=== PATIENT | female | born 1960 | race American Indian/Alaskan Native ===

== ENCOUNTER 2016-10-15 21:31 | Inpatient (IN) | payer MEDICARE, OTHER ==
[2016-10-15] MEDS ORDERED: NACL 0.9% 1000 ML 1,000 ML IV ONE (22:50)
[2016-10-15 22:57] LABS: Bilirubin,Urine NEG (Negative); Blood,Urine MOD (Negative); Ketones,Urine NEG (Negative); Leukocyte Esterase,Urine MOD (Negative); Nitrite,Urine NEG (Negative); Urobilinogen,Urine < 2.0 mg/dL (<2.0)
[2016-10-15 22:58] LABS: Bacteria,Urine 3+ /HPF (Negative); WBC,Urine > 182.0 /HPF (0.0-6.0)
[2016-10-15] MEDS ORDERED: ROCEPHIN/NS 1 GM/50 ML 1 GM/50 ML BAG IV ONE (23:04)
[2016-10-15 23:15] LABS: Eosinophils % (Auto) 4.6 % (0.0-4.3); Hematocrit 35.7 % (30.3-42.9); Hemoglobin 11.7 gm/dl (10.1-14.3); Mean Corpuscular HGB Conc 33 % (30-34); Mean Corpuscular Hemoglobin 27 pg (28-32); Mean Corpuscular Volume 84 fl (79-97); Platelet Count 401 K/mm3 (140-440); Red Blood Count 4.26 M/mm3 (3.65-5.03); Red Cell Distribution Width 14.7 % (13.2-15.2); White Blood Count 8.3 K/mm3 (4.5-11.0)
[2016-10-15 23:32] LABS: Creatine Kinase MB 1.2 ng/mL (0.0-4.0)
[2016-10-15 23:35] LABS: Albumin 3.3 g/dL (3.9-5); Albumin/Globulin Ratio 0.6 %; BUN/Creatinine Ratio 12.75; Bilirubin,Total 0.4 mg/dL (0.1-1.2); Calcium 10.5 mg/dL (8.4-10.2); Chloride 97.6 mmol/L (98-107); Potassium 4.6 mmol/L (3.6-5.0); Total Protein 8.4 g/dL (6.3-8.2)
[2016-10-15 23:40] LABS: INR 1.13 (0.87-1.13)
--- NOTE | 2016-10-15 23:56 | Emergency Department Report ---
ED Syncope HPI - General Chief Complaint: Abdominal Pain Stated Complaint: PAINFUL URINATION/VAG DISCHARGE Time Seen by Provider: 10/15/16 22:32 Source: old records (neg stress test 04/25) Exam Limitations: no limitations - History of Present Illness Initial Comments: 55 yo female with a past medical history of CVA with residual right-sided deficits, diabetes, hypertension, lupus, and chronic renal sufficiency presents to the hospitalist syncopal episode. Patient had a syncopal episode in the room. Patient complains of left-sided chest pain described as throbbing. No pain at this time. No associated shortness of breath. Patient has had decreased by mouth intake/appetite times one week. No present fever, nausea, vomiting, or diarrhea. - Related Data Allergies/Adverse Reactions: Allergies codeine Allergy (Verified 10/24/15 12:18) Vomiting Home Medications: Ambulatory Orders Carvedilol [Coreg] 6.25 mg PO BID #60 tablet 07/28/15 Clopidogrel Bisulfate [Plavix] 75 mg PO DAILY #30 tablet 07/28/15 Gabapentin [Neurontin] 200 mg PO QHS #60 capsule 07/28/15 Insulin NPH/Regular [NovoLIN 70/30] 15 unit SUB-Q BIDDIAB #3 units 07/28/15 Simvastatin [Zocor TAB] 10 mg PO QHS #30 tablet 07/28/15 cloNIDine [Catapres] 0.1 mg PO TID #90 tablet 07/28/15 ED Review of Systems ROS: Stated complaint: PAINFUL URINATION/VAG DISCHARGE Other details as noted in HPI Comment: All other systems reviewed and negative Other: Constitutional: No fevers chills or weight loss Eyes: No eye pain visual changes or discharge ENT: No ear pain or throat pain Neck: Denies pain Respiratory: Denies cough wheezing shortness of breath Cardiovascular: as per hpi GI: Denies abdominal pain, nausea, vomiting, diarrhea : Denies dysuria Musculoskeletal: Denies back pain Skin: Denies rash, lesions, erythema Neurologic: Denies headache, numbness Psychiatric: Denies suicidal ideation, hallucinations ED Past Medical Hx - Past Medical History Previous Medical History?: Yes Hx Hypertension: Yes Hx CVA: Yes (06/10/15 Right side weakness) Hx Congestive Heart Failure: No Hx Diabetes: Yes Hx Renal Disease: Yes Hx Headaches / Migraines: Yes Hx Kidney Stones: Yes Hx Asthma: No Hx COPD: No Hx HIV: No Additional medical history: Lupus - Surgical History Past Surgical History?: No Additional Surgical History: stent in both kidneys and removed, tubal - Social History Smoking Status: Never Smoker Substance Use Type: None - Medications Home Medications: Home Medications Medication Instructions Recorded Confirmed Last Taken Type Carvedilol [Coreg] 6.25 mg PO BID #60 tablet 07/28/15 04/20/16 Unknown Rx Clopidogrel Bisulfate [Plavix] 75 mg PO DAILY #30 tablet 07/28/15 04/20/16 Unknown Rx Gabapentin [Neurontin] 200 mg PO QHS #60 capsule 07/28/15 04/20/16 Unknown Rx Insulin NPH/Regular [NovoLIN 70/30] 15 unit SUB-Q BIDDIAB #3 units 07/28/1506/25 Unknown Rx Simvastatin [Zocor TAB] 10 mg PO QHS #30 tablet 07/28/15 04/20/16 Unknown Rx cloNIDine [Catapres] 0.1 mg PO TID #90 tablet 07/28/15 04/20/16 Unknown Rx ED Physical Exam - General Limitations: Physical Limitation - Other Other exam information: General: No limitations, patient is alert in no acute distress Head exam: Atraumatic, normocephalic Eyes exam: Normal appearance, pupils equal reactive to light, extraocular movements intact ENT: Moist mucous membrane, normal oropharynx Neck exam: Normal inspection, full range of motion Respiratory exam: Clear to auscultation bilateral, no wheezes, rales, crackles Cardiovascular: Normal rate and rhythm, normal heart sounds Abdomen: Soft, nondistended, and nontender, with normal bowel sounds, no rebound, or guarding Extremity: Full range of motion normal inspection no deformity Back: Normal Inspection, full range of motion, no tenderness Neurologic: Alert, oriented x3, mild dysarthria (chronic), 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 vq and chest xray ordered. hospitalist to follow. - Consultations Consultation #1: 10/16/16 00:28 case d/w Dr Nael Saldivar and EKG reviewed. Will consult ED Medical Decision Making - Lab Data Result diagrams: 10/15/16 22:57 10/15/16 22:57 Lab Results 10/15/16 10/15/16 10/15/16 Range/Units 22:17 22:57 22:57 WBC 8.3 (4.5-11.0) K/mm3 RBC 4.26 (3.65-5.03) M/mm3 Hgb 11.7 (10.1-14.3) gm/dl Hct 35.7 (30.3-42.9) % MCV 84 (79-97) fl MCH 27 L (28-32) pg MCHC 33 (30-34) % RDW 14.7 (13.2-15.2) % Plt Count 401 (140-440) K/mm3 Lymph % (Auto) 35.3 H (13.4-35.0) % [place] % (Auto) 7.9 H (0.0-7.3) % Eos % (Auto) 4.6 H (0.0-4.3) % Baso % (Auto) 1.0 (0.0-1.8) % Lymph # 2.9 (1.2-5.4) K/mm3 [place] # 0.7 (0.0-0.8) K/mm3 Eos # 0.4 (0.0-0.4) K/mm3 Baso # 0.1 (0.0-0.1) K/mm3 Seg Neutrophils % 51.2 (40.0-70.0) % Seg Neutrophils # 4.2 (1.8-7.7) K/mm3 PT (12.2-14.9) Sec. INR (0.87-1.13) Sodium 130 L (137-145) mmol/L Potassium 4.6 (3.6-5.0) mmol/L Chloride 97.6 L (98-107) mmol/L Carbon Dioxide 18 L (22-30) mmol/L Anion Gap 19 mmol/L BUN 51 H (7-17) mg/dL Creatinine 4.0 H (0.7-1.2) mg/dL Estimated GFR 14 ml/min BUN/Creatinine Ratio 12.75 % Glucose 260 H (65-100) mg/dL Calcium 10.5 H (8.4-10.2) mg/dL Total Bilirubin 0.4 (0.1-1.2) mg/dL AST 10 (5-40) units/L ALT 8 (7-56) units/L Alkaline Phosphatase 146 H (35-129) units/L Total Creatine Kinase 49 (30-135) units/L CK-MB (CK-2) 1.2 (0.0-4.0) ng/mL CK-MB (CK-2) Rel Index 2.4 (0-4) Troponin T 0.038 H (0.00-0.029) ng/mL Total Protein 8.4 H (6.3-8.2) g/dL Albumin 3.3 L (3.9-5) g/dL Albumin/Globulin Ratio 0.6 % Triglycerides 208 H (2-149) mg/dL Cholesterol 255 H (50-199) mg/dL LDL Cholesterol Direct 183 H (50-130) mg/dL HDL Cholesterol 31 L (40-59) mg/dL Cholesterol/HDL Ratio 8.22 % Urine Color Yellow (Yellow) Urine Turbidity Turbid (Clear) Urine pH 5.0 (5.0-7.0) Ur Specific [place] 1.012 (1.003-1.030) Urine Protein 100 mg/dl (Negative) mg/dL Urine Glucose (UA) 150 (Negative) mg/dL Urine Ketones Neg (Negative) mg/dL Urine Blood Mod (Negative) Urine Nitrite Neg (Negative) Urine Bilirubin Neg (Negative) Urine Urobilinogen < 2.0 (<2.0) mg/dL Ur Leukocyte Esterase Mod (Negative) Urine WBC (Auto) > 182.0 H (0.0-6.0) /HPF Urine RBC (Auto) 75.0 (0.0-6.0) /HPF Urine Bacteria (Auto) 3+ (Negative) /HPF Urine WBC Clumps 3+ /HPF 10/15/16 Range/Units 23:07 WBC (4.5-11.0) K/mm3 RBC (3.65-5.03) M/mm3 Hgb (10.1-14.3) gm/dl Hct (30.3-42.9) % MCV (79-97) fl MCH (28-32) pg MCHC (30-34) % RDW (13.2-15.2) % Plt Count (140-440) K/mm3 Lymph % (Auto) (13.4-35.0) % [place] % (Auto) (0.0-7.3) % Eos % (Auto) (0.0-4.3) % Baso % (Auto) (0.0-1.8) % Lymph # (1.2-5.4) K/mm3 [place] # (0.0-0.8) K/mm3 Eos # (0.0-0.4) K/mm3 Baso # (0.0-0.1) K/mm3 Seg Neutrophils % (40.0-70.0) % Seg Neutrophils # (1.8-7.7) K/mm3 PT 14.4 (12.2-14.9) Sec. INR 1.13 (0.87-1.13) Sodium (137-145) mmol/L Potassium (3.6-5.0) mmol/L Chloride (98-107) mmol/L Carbon Dioxide (22-30) mmol/L Anion Gap mmol/L BUN (7-17) mg/dL Creatinine (0.7-1.2) mg/dL Estimated GFR ml/min BUN/Creatinine Ratio % Glucose (65-100) mg/dL Calcium (8.4-10.2) mg/dL Total Bilirubin (0.1-1.2) mg/dL AST (5-40) units/L ALT (7-56) units/L Alkaline Phosphatase (35-129) units/L Total Creatine Kinase (30-135) units/L CK-MB (CK-2) (0.0-4.0) ng/mL CK-MB (CK-2) Rel Index (0-4) Troponin T (0.00-0.029) ng/mL Total Protein (6.3-8.2) g/dL Albumin (3.9-5) g/dL Albumin/Globulin Ratio % Triglycerides (2-149) mg/dL Cholesterol (50-199) mg/dL LDL Cholesterol Direct (50-130) mg/dL HDL Cholesterol (40-59) mg/dL Cholesterol/HDL Ratio % Urine Color (Yellow) Urine Turbidity (Clear) Urine pH (5.0-7.0) Ur Specific [place] (1.003-1.030) Urine Protein (Negative) mg/dL Urine Glucose (UA) (Negative) mg/dL Urine Ketones (Negative) mg/dL Urine Blood (Negative) Urine Nitrite (Negative) Urine Bilirubin (Negative) Urine Urobilinogen (<2.0) mg/dL Ur Leukocyte Esterase (Negative) Urine WBC (Auto) (0.0-6.0) /HPF Urine RBC (Auto) (0.0-6.0) /HPF Urine Bacteria (Auto) (Negative) /HPF Urine WBC Clumps /HPF - EKG Data -: EKG Interpreted by Me (sinus rate 58, ant lat ischemia) - EKG Data When compared to previous EKG there are: changes noted (compraed to 01/24/13) - Radiology Data Radiology results: image reviewed (cxr: naf) - Medical Decision Making I suspect the patient had syncope secondary to dehydration. Patient has a mildly elevated troponin was likely due to underlying chronic renal sufficiency does acutely worsened due to dehydration and poor by mouth intake. Symptoms likely secondary to UTI. ddimer added per admitting doctor request. Hospitalist/ Dr Saldivar to follow Rocephin and normal saline initiated VQ pending - Differential Diagnosis unstable angina, pe, dehydration, uti, Critical Care Time: No Critical care attestation.: If time is entered above; I have spent that time in minutes in the direct care of this critically ill patient, excluding procedure time. ED Disposition Clinical Impression: Syncope, UTI (urinary tract infection), Hyperglycemia due to type 1 diabetes mellitus, Acute on chronic renal insufficiency, Abnormal ECG, Dehydration Disposition: OP ADMITTED IP TO THIS HOSP Is pt being admited?: Yes Condition: Stable Time of Disposition: 00:28 (Dr Saldivar/hosp)
[2016-10-16] MEDS ORDERED: TORADOL IV ONE (00:13)
--- NOTE | 2016-10-16 00:41 | History and Physical Report ---
History of Present Illness Date of examination: 10/16/16 History of present illness: 55-year-old woman with history of hypertension, diabetes, chronic kidney disease and hyperlipidemia, lupus, history of CVA came to the emergency room because she had a syncopal episode at home lasting for 2-3 seconds. Patient states she also had chest pain, left anterior chest, dull, unclear how long it lasts for, intensity September 19, no radiation, she cannot identify exacerbating or relieving factors. She denies nausea vomiting, shortness breath , diaphoresis or palpitation Patient denies any or cough. No abdominal pain, no hematochezia. No dysuria or frequency or rash or pruritus or anxiety or depression or seizure or focal weakness. No hot or cold intolerance or polydipsia polyuria, no easy bruisability or bleeding from mucosal membranes. No fever no chills, no earache or tinnitus. Other review of system is negative. PAST SURGICAL HISTORY: None SOCIAL HISTORY:Denies alcohol, tobacco or drugs FAMILY HISTORY:Hypertension, diabetes, CAD Medications and Allergies Allergies Allergy/AdvReac Type Severity Reaction Status Date / Time codeine Allergy Vomiting Verified 10/24/15 12:18 Home Medications Medication Instructions Recorded Confirmed Last Taken Type Carvedilol [Coreg] 6.25 mg PO BID #60 tablet 07/28/15 10/16/16 1 Day Ago Rx Clopidogrel Bisulfate [Plavix] 75 mg PO DAILY #30 tablet 07/28/15 10/16/16 1 Day Ago Rx Gabapentin [Neurontin] 200 mg PO QHS #60 capsule 07/28/15 10/16/16 1 Day Ago Rx Insulin NPH/Regular [NovoLIN 70/30] 15 unit SUB-Q BIDDIAB #3 units 07/28/1504/26 1 Day Ago Rx Simvastatin [Zocor TAB] 10 mg PO QHS #30 tablet 07/28/15 10/16/16 1 Day Ago Rx cloNIDine [Catapres] 0.1 mg PO TID #90 tablet 07/28/15 10/16/16 1 Day Ago Rx Levofloxacin [Levaquin TAB] 500 mg PO Q48H #4 tablet 10/17/16 Unknown Rx Active Meds: Active Medications Sodium Chloride (Nacl 0.9% 1000 Ml) 1,000 mls @ 250 mls/hr IV ONCE ONE Stop: 10/16/16 02:49 Last Admin: 10/15/16 23:53 Dose: 250 mls/hr Exam - Physical Exam Narrative exam: Gen. appearance: Patient lying in bed, no apparent distress HEENT: Normocephalic, atraumatic, pupils equally round and reactive to light, extraocular movement intact, and no sclericterus,. No JVD or thyromegaly or nodule,neck supple, no carotid bruit ,mucous membranes moist, no exudate or erythema Heart: S1, S2, regular rate and rhythm Lungs: Clear to auscultation bilaterally, breathing comfortable Abdomen: Positive bowel sounds, nontender, nondistended, no organomegaly Extremity: No edema, cyanosis, clubbing Skin: No rash, nodules, warm, dry Neuro: Oriented 3, cranial nerves II-12 intact, speech is fluent, right side weakness - Constitutional Vitals: Temp Pulse Resp BP Pulse Ox 98 F 75 18 133/85 100 10/15/16 23:43 10/15/16 23:43 10/15/16 23:43 10/15/16 23:43 10/15/16 23:43 Results - Labs CBC & Chem 7: 10/17/16 04:15 10/17/16 04:15 Labs: Abnormal lab results 10/15/16 10/15/16 10/15/16 Range/Units 22:17 22:57 22:57 MCH 27 L (28-32) pg Lymph % (Auto) 35.3 H (13.4-35.0) % [place] % (Auto) 7.9 H (0.0-7.3) % Eos % (Auto) 4.6 H (0.0-4.3) % D-Dimer (0-234) ng/mlDDU Sodium 130 L (137-145) mmol/L Chloride 97.6 L (98-107) mmol/L Carbon Dioxide 18 L (22-30) mmol/L BUN 51 H (7-17) mg/dL Creatinine 4.0 H (0.7-1.2) mg/dL Glucose 260 H (65-100) mg/dL Calcium 10.5 H (8.4-10.2) mg/dL Alkaline Phosphatase 146 H (35-129) units/L Troponin T 0.038 H (0.00-0.029) ng/mL Total Protein 8.4 H (6.3-8.2) g/dL Albumin 3.3 L (3.9-5) g/dL Triglycerides 208 H (2-149) mg/dL Cholesterol 255 H (50-199) mg/dL LDL Cholesterol Direct 183 H (50-130) mg/dL HDL Cholesterol 31 L (40-59) mg/dL Urine WBC (Auto) > 182.0 H (0.0-6.0) /HPF 10/15/16 Range/Units 23:07 MCH (28-32) pg Lymph % (Auto) (13.4-35.0) % [place] % (Auto) (0.0-7.3) % Eos % (Auto) (0.0-4.3) % D-Dimer 650.55 H (0-234) ng/mlDDU Sodium (137-145) mmol/L Chloride (98-107) mmol/L Carbon Dioxide (22-30) mmol/L BUN (7-17) mg/dL Creatinine (0.7-1.2) mg/dL Glucose (65-100) mg/dL Calcium (8.4-10.2) mg/dL Alkaline Phosphatase (35-129) units/L Troponin T (0.00-0.029) ng/mL Total Protein (6.3-8.2) g/dL Albumin (3.9-5) g/dL Triglycerides (2-149) mg/dL Cholesterol (50-199) mg/dL LDL Cholesterol Direct (50-130) mg/dL HDL Cholesterol (40-59) mg/dL Urine WBC (Auto) (0.0-6.0) /HPF - Imaging and Cardiology EKG: image reviewed Chest x-ray: image reviewed Assessment and Plan v/q low probability Syncope with chest pain UTI Hypertension Diabetes Chronic kidney disease Hyperlipidemia Lupus History of CVA Admit to medicine Check cardiac enzymes, carotid Doppler, consult cardiology Continue appropriate outpatient medications Check fingersticks initiate insulin sliding scale Start DVT prophylaxis
--- NOTE | 2016-10-16 02:11 | Nuclear Medicine Report ---
FINAL REPORT PROCEDURE: NM LUNG SCAN PERF/VENT TECHNIQUE: Five mCi Tc-99m MAA was injected IV for pulmonary perfusion imaging in multiple projections. Fifteen mCi Xenon 133 gas was inhaled for pulmonary ventilation imaging in multiple projections. Injection site: RIGHT antecubital fossa. CPT 21673 HISTORY: elevated ddimer COMPARISON: Chest radiograph 10/15/2016 FINDINGS: Perfusion: No defects . Ventilation: No defects . IMPRESSION: Normal Examination
[2016-10-16] MEDS ORDERED: DULCOLAX PR PRN (02:18)
[2016-10-16] MEDS ORDERED: ZOFRAN IV PRN (02:18)
[2016-10-16] MEDS ORDERED: D50W (25GM) IV PRN (02:18)
[2016-10-16] MEDS ORDERED: TYLENOL PO PRN (02:18)
[2016-10-16] MEDS ORDERED: MILK OF MAGNESIA PO PRN (02:18)
[2016-10-16 03:35] LABS: Creatine Kinase MB 1.2 ng/mL (0.0-4.0)
[2016-10-16] MEDS ORDERED: APRESOLINE IV ONE (04:05)
--- NOTE | 2016-10-16 07:52 | XRay Report ---
Single view chest: Compared to 04/20/16. History: Chest pain, syncope. Findings: Normal cardiomediastinal silhouette. Trachea is midline. No consolidation, pneumothorax or pleural effusion. Impression: No acute cardiopulmonary findings.
[2016-10-16] MEDS: NOVOLOG SUB-Q SCH ×4 (08:00→23:05)
[2016-10-16] MEDS: CATAPRES PO SCH ×3 (08:00→23:05)
[2016-10-16 08:52] LABS: Creatine Kinase MB 1.4 ng/mL (0.0-4.0)
--- NOTE | 2016-10-16 09:49 | Consultation ---
History of Present Illness Consult date: 10/16/16 Consult reason: elevated troponin, other (Abnormal ECG) History of present illness: This 55-year-old woman has multiple medical problems. She appears frail and chronically ill, with a prior CVA and residual right hemiparesis. She has Hypertension, Diabetes and chronic renal failure. There is no history of coronary artery disease. On her presentation to the emergency room she complained to flank pain now admitted with UTI and dehydration. Consultation is requested for abnormal ECG and mild elevated troponin. On review, her presenting ECG reveals a sinus rhythm with left ventricular hypertrophy with repolarization abnormalities. No changes noted in comparison to prior ECG done 2014. Cardiac enzymes measured shows a normal CK-MB of 1.2 with a mild elevated troponin of 0.03 in the setting of renal failure. Creatinine 4.0. Currently, patient is chest pain- free. Her most recent cardiac workup was done 6 months ago. She had a persantine stress thallium that demonstrated a normal myocardial perfusion. Medications and Allergies Allergies Allergy/AdvReac Type Severity Reaction Status Date / Time codeine Allergy Vomiting Verified 10/24/15 12:18 Home Medications Medication Instructions Recorded Confirmed Last Taken Type Carvedilol [Coreg] 6.25 mg PO BID #60 tablet 07/28/15 04/20/16 Unknown Rx Clopidogrel Bisulfate [Plavix] 75 mg PO DAILY #30 tablet 07/28/15 04/20/16 Unknown Rx Gabapentin [Neurontin] 200 mg PO QHS #60 capsule 07/28/15 04/20/16 Unknown Rx Insulin NPH/Regular [NovoLIN 70/30] 15 unit SUB-Q BIDDIAB #3 units 07/28/1506/25 Unknown Rx Simvastatin [Zocor TAB] 10 mg PO QHS #30 tablet 07/28/15 04/20/16 Unknown Rx cloNIDine [Catapres] 0.1 mg PO TID #90 tablet 07/28/15 04/20/16 Unknown Rx Active Meds: Active Medications Acetaminophen (Tylenol) 650 mg PO Q4H PRN PRN Reason: Pain MILD(1-3)/Fever >100.5/WARREN Last Admin: 10/16/16 05:46 Dose: 650 mg Bisacodyl (Dulcolax) 10 mg RI QDAY PRN PRN Reason: Constipation unrelieved by MOM Carvedilol (Coreg) 6.25 mg PO BID AMY Clonidine HCl (Catapres) 0.1 mg PO TID [facility] Clopidogrel Bisulfate (Plavix) 75 mg PO DAILY [facility] Dextrose (D50w (25gm)) 50 ml IV PRN PRN PRN Reason: Hypoglycemia Enoxaparin Sodium (Lovenox) 30 mg SUB-Q QDAY [facility] Gabapentin (Neurontin) 200 mg PO QHS [facility] Ceftriaxone Sodium (Rocephin/Ns 1 Gm/50 Ml) 1 gm in 50 mls @ 100 mls/hr IV Q24H AMY PRN Reason: Protocol Insulin Aspart (Novolog) 0 units SUB-Q ACHS AMY PRN Reason: Protocol Insulin Human Isoph/Insulin Regular (Novolin 70/30) 15 unit SUB-Q BIDDIAB [facility] Magnesium Hydroxide (Milk Of Magnesia) 30 ml PO Q4H PRN PRN Reason: Constipation Ondansetron HCl (Zofran) 4 mg IV Q8H PRN PRN Reason: N/V unrelieved by Reglan Simvastatin (Zocor) 10 mg PO QHS [facility] Physical Examination Vital Signs Temp Pulse Resp BP Pulse Ox 98 F 60 20 136/85 98 10/15/16 22:18 10/15/16 22:18 10/15/16 22:18 10/15/16 22:18 10/15/16 22:18 General appearance: no acute distress HEENT: Positive: PERRL Neck: Positive: trachea midline Cardiac: Positive: Reg Rate and Rhythm Lungs: Positive: Decreased Breath Sounds Neuro: Positive: Weakness Results 10/15/16 22:57 10/15/16 22:57 Cardiac Enzymes 10/16/16 10/16/16 Range/Units 03:00 08:11 Total Creatine Kinase 47 45 (30-135) units/L CK-MB (CK-2) 1.2 1.4 (0.0-4.0) ng/mL CK-MB (CK-2) Rel Index 2.5 3.1 (0-4) Troponin T 0.032 H 0.029 (0.00-0.029) ng/mL Assessment and Plan UTI Volume depletion Elevated D-dimer no evidence of PE by VQ scan Abnormal ECG- sinus rhythm with repolarization abnormalities of LVH. No change from old ECG done 2014. normal MPI 04/2016 Hyperlipidemia CKD Hypertension Prior CVA on plavix Recommend: Echocardiogram for LVEF assessment.
[2016-10-16] MEDS ORDERED: LOVENOX SUB-Q SCH (10:00)
--- NOTE | 2016-10-16 11:20 | Consultation ---
History of Present Illness - Reason for Consult Consult date: 10/16/16 chronic renal failure, end stage renal disease, metabolic acidosis - History of Present Illness The patient is a 55year old AAF with history significant for DM type 2, Hypertension, Hyperlipidemia, Lupus, CVA with residual right hemiparesis, weight loss and CKD stage 4/5 presented to on to the emergency room for evaluation of syncopal episode at home. Patient is a poor historian and family members at the bedside were not able to give a good history. Patient was in the bed when she had the pre-syncopal episode. She also had chest pain, left anterior chest, dull, intensity 10, without any radiation. Per sister her appetite is poor with decreased PO intake and about 20 lbs weight loss over the past 2-3 months. Her sleep is also affected and at times she seems to be confused. No h/o nausea, vomiting, diarrhea, abd pain, dysuria, hematuria, fever, rash, cough, shortness breath, diaphoresis or hemoptysis. Her baseline creatinine is around 3.2 which seems to be progressively getting worse. Her creatinine during this admission is 4. Past History Past Medical History: anemia, hypertension, renal failure, stroke Medications and Allergies Allergies Allergy/AdvReac Type Severity Reaction Status Date / Time codeine Allergy Vomiting Verified 10/24/15 12:18 Home Medications Medication Instructions Recorded Confirmed Last Taken Type Carvedilol [Coreg] 6.25 mg PO BID #60 tablet 07/28/15 04/20/16 Unknown Rx Clopidogrel Bisulfate [Plavix] 75 mg PO DAILY #30 tablet 07/28/15 04/20/16 Unknown Rx Gabapentin [Neurontin] 200 mg PO QHS #60 capsule 07/28/15 04/20/16 Unknown Rx Insulin NPH/Regular [NovoLIN 70/30] 15 unit SUB-Q BIDDIAB #3 units 07/28/1506/25 Unknown Rx Simvastatin [Zocor TAB] 10 mg PO QHS #30 tablet 07/28/15 04/20/16 Unknown Rx cloNIDine [Catapres] 0.1 mg PO TID #90 tablet 07/28/15 04/20/16 Unknown Rx Active Meds: Active Medications Acetaminophen (Tylenol) 650 mg PO Q4H PRN PRN Reason: Pain MILD(1-3)/Fever >100.5/WARREN Last Admin: 10/16/16 05:46 Dose: 650 mg Bisacodyl (Dulcolax) 10 mg SC QDAY PRN PRN Reason: Constipation unrelieved by MOM Carvedilol (Coreg) 6.25 mg PO BID [facility] Clonidine HCl (Catapres) 0.1 mg PO TID [facility] Clopidogrel Bisulfate (Plavix) 75 mg PO DAILY [facility] Dextrose (D50w (25gm)) 50 ml IV PRN PRN PRN Reason: Hypoglycemia Enoxaparin Sodium (Lovenox) 30 mg SUB-Q QDAY [facility] Gabapentin (Neurontin) 200 mg PO QHS [facility] Ceftriaxone Sodium (Rocephin/Ns 1 Gm/50 Ml) 1 gm in 50 mls @ 100 mls/hr IV Q24H AMY PRN Reason: Protocol Insulin Aspart (Novolog) 0 units SUB-Q ACHS AMY PRN Reason: Protocol Insulin Human Isoph/Insulin Regular (Novolin 70/30) 15 unit SUB-Q BIDDIAB [facility] Magnesium Hydroxide (Milk Of Magnesia) 30 ml PO Q4H PRN PRN Reason: Constipation Ondansetron HCl (Zofran) 4 mg IV Q8H PRN PRN Reason: N/V unrelieved by Reglan Simvastatin (Zocor) 10 mg PO QHS [facility] Review of Systems Constitutional: weight loss, anorexia, fatigue, weakness, poor appetite, no weight gain, no fever, no chills Ears, nose, mouth and throat: no sinus pressure, no sinus pain, no epistaxis Breasts: deferred Cardiovascular: chest pain, syncope, high blood pressure, no edema, no shortness of breath Respiratory: no cough, no hemoptysis, no shortness of breath Gastrointestinal: no abdominal pain, no nausea, no vomiting, no melena Genitourinary Female: no dysuria, no hematuria Rectal: no bleeding Integumentary: no rash, no jaundice Neurological: weakness, syncope, other (unsteady gait), no seizures Psychiatric: sleep disturbances Hematologic/Lymphatic: no easy bleeding Allergic/Immunologic: no urticaria Exam - Vital Signs Vital signs: Vital Signs Temp Pulse Resp BP Pulse Ox 98 F 60 20 136/85 98 10/15/16 22:18 10/15/16 22:18 10/15/16 22:18 10/15/16 22:18 10/15/16 22:18 - General Appearance General appearance: well-developed, cachectic, chronically ill, frail, other ( no distress) EENT: PERRL, hearing intact, vision intact Neck: Present: neck supple, trachea midline Respiratory: Clear to Ascultation Heart: regular, S1S2, no murmurs Gastrointestinal: Present: normoactive bowel sounds. Absent: tenderness, distended, guarding Integumentary: no rash, warm and dry Neurologic: no asterixis, alert and oriented x3, other (able to move all 4 extremities) Musculoskeletal: Present: other (no edema) Psychiatric: mood/affect appropriate, cooperative Results - Lab Results 10/15/16 22:57 10/15/16 22:57 Most recent lab results Calcium 10.5 mg/dL (8.4-10.2) H 10/15/16 22:57 Assessment and Plan - Patient Problems (1) Chronic kidney disease Current Visit: No Status: Chronic Qualifiers: Chronic kidney disease stage: unspecified stage Qualified Code(s): N18.9 - Chronic kidney disease, unspecified Plan to address problem: CKD secondary to Nephrolithiasis and bilateral hydronephrosis. Likely progressively worsening CKD rather than any Acute Kidney Injury. Symptoms are very suggestive of uremia. D/w her primary Salesperson Furs , who wants to wait to see if there is any improvement in the renal function. Will start on IV fluids to treat any volume depletion Family was explained that she will need to be started on hemodialysis if there is no improvement in the kidney function. (2) Syncope Current Visit: Yes Status: Acute Qualifiers: Syncope type: S Encounter type: E Plan to address problem: Suspected syncope. Followed by Cards. (3) Chest pain Current Visit: No Status: Acute Qualifiers: Chest pain type: unspecified Qualified Code(s): R07.9 - Chest pain, unspecified (4) HTN (hypertension) Current Visit: No Status: Chronic Qualifiers: Hypertension type: H Plan to address problem: Resume home meds. Will follow BP. (5) Emaciation Current Visit: Yes Status: Chronic
[2016-10-16] MEDS: LOVENOX SUB-Q SCH (15:00)
[2016-10-16] MEDS: PLAVIX PO SCH (15:00)
[2016-10-16] MEDS ORDERED: NACL 0.9% 1000 ML 1,000 ML IV SCH (15:00)
[2016-10-16] MEDS: COREG PO SCH ×2 (15:00→23:00)
--- NOTE | 2016-10-16 15:29 | Event Note ---
Date: 10/16/16 Patient admitted for syncope, CKD. Patient is being working up for syncope.
--- NOTE | 2016-10-16 18:59 | Admit Criteria Form ---
Admission Criteria Documentation: SYNCOPE Clinical Indications for Admission to Inpatient Care ( Place 'X' for any and all applicable criteria): Admission is indicated for syncope and ANY ONE of the following (1)(2)(3)(4)(5) (6)(7) : [X]I. Inpatient admission required rather than observation care (Also use Syncope: Observation Care Criteria as appropriate) because of ANY ONE of the following: [ ]a) Hemodynamic instability that is severe or persistent [ ]b) Cardiac arrhythmias of immediate concern identified or strongly suspected (eg, needs electrophysiologic study) [ ]c) Acute coronary syndrome identified (Also use Myocardial Infarction or Angina Criteria form ) [ ]d) Structural cardiac disorder (eg, aortic stenosis) suspected as cause that requires immediate correction [ ]e) Respiratory symptoms (eg, dyspnea, tachypnea) that are severe or persistent [ ]f) Neurologic signs or symptoms that are severe or persistent ( eg, stroke, seizures, altered mental status) [ ]g) Severe electrolyte abnormalities requiring inpatient care [ ]h) Supplemental oxygen or respiratory treatment for over 24 hrs that are performable only in acute inpatient setting [ ]i) IV fluid to replace significant ongoing (eg, for over 24 hrs ) losses (>3 L/m2 per day) [ ]j) Continuous intravenous infusion of anticoagulation, platelet inhibitor, vasoactive, or antiarrhythmic medication(15)(16) [ ]k) Pulmonary artery catheter monitoring [ ]l) Temporary pacemaker placement(17) [ ]m) Emergent cardioversion(18) [X]n) Other conditions, treatment or monitoring requiring inpatient admission [ ]II. Suspicion of imminently dangerous cause (eg, rare causes like pericardial tamponade, pulmonary embolism) [ ]III. Syncope causing severe injury requiring hospitalization Extended stay beyond goal length of stay may be needed for(28) [ ]a) Dangerous arrhythmia(15)(23)(27)(29) [ ]b) Myocardial ischemia [ ]c) Seizure disorder [ ]d) Syncope-related injuries The original [employer] content created by [employer] has been revised. The portions of the content which have been revised are identified through the use of italic text or in bold, and [employer] has neither reviewed nor approved the modified material. All other unmodified content is copyright [email or web address] [employer]. Please see references footnoted in the original [facility] edition 2016 Admission Criteria Met: Yes
--- NOTE | 2016-10-16 19:00 | Event Note ---
Date: 10/16/16 Originally consulted for dialysis access placement. Discussed with the nephrologists who wants to hold off on dialysis catheter placement for now. Please reconsult us if needed.
[2016-10-16] MEDS ORDERED: ZOCOR PO SCH (22:00)
[2016-10-16] MEDS ORDERED: ROCEPHIN/NS 1 GM/50 ML 1 GM/50 ML BAG IV SCH (22:00)
[2016-10-16] MEDS ORDERED: NEURONTIN PO SCH (22:00)
[2016-10-17 04:37] LABS: Basophils % (Auto) 0.9 % (0.0-1.8); Eosinophils % (Auto) 3.5 % (0.0-4.3); Hematocrit 32.6 % (30.3-42.9); Hemoglobin 10.5 gm/dl (10.1-14.3); Mean Corpuscular HGB Conc 32 % (30-34); Mean Corpuscular Hemoglobin 26 pg (28-32); Mean Corpuscular Volume 82 fl (79-97); Platelet Count 366 K/mm3 (140-440); Red Blood Count 3.98 M/mm3 (3.65-5.03); Red Cell Distribution Width 14.2 % (13.2-15.2)
[2016-10-17 05:41] LABS: BUN/Creatinine Ratio 16.53; Calcium 9.5 mg/dL (8.4-10.2); Chloride 107.1 mmol/L (98-107); Potassium 3.8 mmol/L (3.6-5.0)
--- NOTE | 2016-10-17 07:22 | Progress Note ---
Assessment and Plan - Patient Problems (1) Acute on chronic renal insufficiency Current Visit: Yes Status: Acute Plan to address problem: Acute Kidney Injury superimposed on CKD stage 4 secondary to volume depletion. Renal function has improved to her baseline. Patient was advsied to drink adequate fluids. D/w her energy manager. (2) Syncope Current Visit: Yes Status: Acute Qualifiers: Syncope type: S Encounter type: E Plan to address problem: Suspected syncope. Followed by Cards. (3) Chest pain Current Visit: No Status: Acute Qualifiers: Chest pain type: unspecified Qualified Code(s): R07.9 - Chest pain, unspecified Plan to address problem: Resolved. (4) HTN (hypertension) Current Visit: No Status: Chronic Qualifiers: Hypertension type: H Plan to address problem: BP is well controlled. (5) Emaciation Current Visit: Yes Status: Chronic Subjective Date of service: 10/17/16 Interval history: Patient is feeling better today. Objective - Vital Signs Vital signs: Vital Signs - 12hr 10/16/16 10/17/16 10/17/16 20:00 00:35 01:00 Temperature 97.9 F 97.7 F Pulse Rate 82 Pulse Rate [ 80 78 Right Radial] Respiratory 18 20 Rate Blood Pressure 183/100 136/84 [Right Arm] O2 Sat by Pulse 95 97 Oximetry 10/17/16 06:35 Temperature 98.2 F Pulse Rate Pulse Rate [ 65 Right Radial] Respiratory 17 Rate Blood Pressure 120/70 [Right Arm] O2 Sat by Pulse 95 Oximetry - General Appearance General appearance: well-developed, chronically ill, frail, other (no distress) EENT: PERRL, hearing intact, vision intact Neck: no JVD, supple Respiratory: Present: Clear to Ascultation Cardiology: regular, S1S2, no murmurs Gastrointestinal: normoactive bowel sounds, no tenderness, no distended, no guarding Integumentary: no rash, warm and dry Neurologic: no asterixis, CN 3-12 intact, other (slight weakness of right UE) Musculoskeletal: other (no edema) Psychiatric: mood/affect appropriate, cooperative - Lab 10/17/16 04:15 10/17/16 04:15 Most recent lab results Calcium 9.5 mg/dL (8.4-10.2) 10/17/16 04:15
[2016-10-17] MEDS ORDERED: BENADRYL PO ONE (08:45)
[2016-10-17 09:00] VITALS: BP 134/73
[2016-10-17] MEDS ORDERED: PEPCID PO NR (09:00)
[2016-10-17] MEDS: NOVOLOG SUB-Q SCH (09:14)
--- NOTE | 2016-10-17 09:23 | Discharge Summary ---
Providers - Providers Date of Admission: 10/16/16 02:18 Date of discharge: 10/17/16 Attending physician: AMADA HUDSON MD 10/16/16 10:20 Consult to Physician [CONS] Routine Consulting Provider: SPOHIA CORTES Reason For Exam: CKD Place consult to:: nephrology Notified:: office Phone number called:: [phone] Was contact made?: Yes If yes, spoke with:: yoel Time called:: 10:31 10/16/16 11:19 Consult to Interventional Radiology [CONS] Routine Consulting Provider: SARAHI LAMAS Reason For Exam: Hemodialysis catheter placement. Place consult to:: vascular Notified:: lavell Was contact made?: Yes Time called:: 11:34 Primary care physician: DRAFTING TEACHER Hospitalization Condition: Stable Hospital course: 55-year-old woman with history of hypertension, diabetes, chronic kidney disease and hyperlipidemia, lupus, history of CVA came to the emergency room because she had a syncopal episode at home lasting for 2-3 seconds. Patient states she also had chest pain, left anterior chest, dull, unclear how long it lasts for, intensity September 19, no radiation. CT head was negative, patient has elevated troponin and cardiology consult was obtained. Cardiology doesn't think she has ACS. Nephrology was consulted and the patient showed improvement in creatinine and recommended to follow-up with her presentation team member as an outpatient. Patient was treated for dehydration and UTI. Patient didn't have any syncopal episode after admission. Patient was stable at the time of discharge. Disposition: DISCHARGED TO HOME OR SELFCARE Time spent for discharge: 31 minutes - Discharge Diagnoses (1) Dehydration Status: Acute (2) Syncope Status: Acute Qualifiers: Syncope type: S Encounter type: E (3) UTI (urinary tract infection) Status: Acute Qualifiers: Urinary tract infection type: U Hematuria presence: H Indwelling urinary catheter type: I Encounter type: E (4) Emaciation Status: Chronic (5) Anemia Status: Acute Qualifiers: Anemia type: unspecified type Iron deficiency anemia type: I Vitamin B12 deficiency anemia type: V Folate deficiency anemia type: F Bone marrow failure anemia type: B Hemolytic anemia type: H Other causes of anemia: O Qualified Code(s): D64.9 - Anemia, unspecified (6) Chest pain Status: Acute Qualifiers: Chest pain type: unspecified Qualified Code(s): R07.9 - Chest pain, unspecified (7) Chronic kidney disease Status: Chronic Qualifiers: Chronic kidney disease stage: unspecified stage Qualified Code(s): N18.9 - Chronic kidney disease, unspecified Core Measure Documentation - Palliative Care Palliative Care/ Comfort Measures: Not Applicable - Core Measures Any of the following diagnoses?: none Exam - Physical Exam Narrative exam: Not in cardiopulmonary distress. The patient is emaciated. Vital signs as documented. Head exam is unremarkable. No scleral icterus . Neck is without jugular venous distension, thyromegaly, or carotid bruits. Lungs are clear to auscultation. Cardiac exam reveals regular rate and Rhythm. First and second heart sounds normal. No murmurs, rubs or gallops. Abdominal exam reveals normal bowel sounds, no masses, no organomegaly and no aortic enlargement. Extremities are nonedematous and both femoral and pedal pulses are normal. PATTERN DESIGNER: Alert and oriented 3. - Constitutional Vitals: Temp Pulse Resp BP Pulse Ox 97.4 F L 56 L 18 134/73 100 10/17/16 08:00 10/17/16 08:00 10/17/16 08:00 10/17/16 08:00 10/17/16 07:56 Plan Activity: advance as tolerated Weight Bearing Status: Weight Bear as Tolerated Diet: low cholesterol, low salt, diabetic, renal Follow up with: PRIMARY CARE, [Primary Care Provider] - 7 Days Prescriptions: Levofloxacin [Levaquin TAB] 500 mg PO Q48H #4 tablet
[2016-10-17] MEDS: COREG PO SCH (10:31)
[2016-10-17] MEDS: PLAVIX PO SCH (10:31)
[2016-10-17] MEDS: LOVENOX SUB-Q SCH (10:31)
[2016-10-17] MEDS: CATAPRES PO SCH (10:31)
--- NOTE | 2016-10-17 11:02 | Progress Note ---
Assessment and Plan UTI Volume depletion Elevated D-dimer no evidence of PE by VQ scan Abnormal ECG- sinus rhythm with repolarization abnormalities of LVH. No change from old ECG done 2014. normal MPI 04/2016 Hyperlipidemia CKD Hypertension Prior CVA on plavix Echocardiogram reports a moderate LVH, ejection fraction 55-60%. Conservative cardiac management. Subjective Date of service: 10/17/16 Interval history: Patient resting in bed comfortably. No cardiac events overnight. For planned discharge home today. Objective Vital Signs Temp Pulse Pulse Resp BP BP Pulse Ox 10/17/16 08:00 97.4 F L 56 L 18 134/73 10/17/16 07:56 100 10/17/16 06:35 98.2 F 65 17 120/70 95 10/17/16 01:00 97.7 F 78 20 136/84 97 10/17/16 00:35 82 10/16/16 20:00 97.9 F 80 18 183/100 95 10/16/16 16:00 97.5 F L 76 18 194/93 10/16/16 15:00 88 156/83 - Physical Examination General: No Apparent Distress HEENT: Positive: PERRL Neck: Positive: trachea midline Cardiac: Positive: Reg Rate and Rhythm Lungs: Positive: Decreased Breath Sounds Neuro: Positive: Weakness - Labs and Meds CBC 10/17/16 Range/Units 04:15 WBC 11.0 (4.5-11.0) K/mm3 RBC 3.98 (3.65-5.03) M/mm3 Hgb 10.5 (10.1-14.3) gm/dl Hct 32.6 (30.3-42.9) % Plt Count 366 (140-440) K/mm3 Lymph # 3.0 (1.2-5.4) K/mm3 [place] # 0.9 H (0.0-0.8) K/mm3 Eos # 0.4 (0.0-0.4) K/mm3 Baso # 0.1 (0.0-0.1) K/mm3 Comprehensive Metabolic Panel 10/17/16 Range/Units 04:15 Sodium 137 D (137-145) mmol/L Potassium 3.8 (3.6-5.0) mmol/L Chloride 107.1 H (98-107) mmol/L Carbon Dioxide 18 L (22-30) mmol/L BUN 43 H (7-17) mg/dL Creatinine 2.6 H (0.7-1.2) mg/dL Glucose 298 H (65-100) mg/dL Calcium 9.5 (8.4-10.2) mg/dL - Imaging and Cardiology EKG: image reviewed
--- NOTE | 2016-10-21 12:00 | Vascular Lab Report ---
CAROTID DUPLEX STUDY: RIGHT PSVEDV CCA PROX:[id number] CCA DIST: 7320 ICA PROX: 8520 ICA MID: 6521 ICA DIST: 6525 ECA: 78 VERT: 38 11 LEFT PSVEDV CCA PROX: 6715 CCA DIST:[id number] ICA PROX: 5920 ICA MID:[id number] ICA DIST: 8623 ECA: 91 VERT: 35 9 REASON FOR EXAM: Carotid artery stenosis/syncope. COMMENTS ON THE RIGHT: Doppler frequency analysis is consistent with 16 to 49 percent diameter reduction of the internal carotid artery. Minimal amount of plaque is seen. The common carotid artery is patent. The external carotid artery is patent. The vertebral artery has antegrade flow. COMMENTS ON THE LEFT: Doppler frequency analysis is consistent with 16 to 49 percent diameter reduction of the internal carotid artery. Minimal amount of plaque is seen. The common carotid artery is patent. The external carotid artery is patent. The vertebral artery has antegrade flow. IMPRESSION: Less than 50% diameter reduction in the internal carotid arteries bilaterally. Consider repeat carotid artery duplex in 12 months.
== END 2016-10-17 13:53 | disposition home health service (06) | DRG 682 ==
LOC: ED 21:31 → 4A 10-16 02:18
PROVIDERS: ADMIT Internal Medicine; ATTEND Internal Medicine
DX: N17.9 Acute kidney failure, unspecified (principal); E41 Nutritional marasmus; N39.0 Urinary tract infection, site not specified; I69.351 Hemiplegia and hemiparesis following cerebral infarction affecting right dominant side; Z68.1 Body mass index [BMI] 19.9 or less, adult; E86.0 Dehydration; N18.4 Chronic kidney disease, stage 4 (severe); E78.5 Hyperlipidemia, unspecified; M32.9 Systemic lupus erythematosus, unspecified; I12.9 Hypertensive chronic kidney disease with stage 1 through stage 4 chronic kidney disease, or unspecified chronic kidney disease; E10.65 Type 1 diabetes mellitus with hyperglycemia; E10.22 Type 1 diabetes mellitus with diabetic chronic kidney disease; R07.9 Chest pain, unspecified; I51.7 Cardiomegaly; D64.9 Anemia, unspecified; E86.9 Volume depletion, unspecified; Z88.5 Allergy status to narcotic agent; Z82.49 Family history of ischemic heart disease and other diseases of the circulatory system; Z83.3 Family history of diabetes mellitus; Z79.4 Long term (current) use of insulin
CPT/HCPCS: 36415; 71010; 78582; 80048; 80053; 80061; 81001; 82550; 82553; 82962; 84484; 85025; 85379; 85610; 87086; 93005; 93010; 93306; 93880; 96365; 96375; A9540; A9558; J0360; J0696; J1650; J1815; J7030

== ENCOUNTER 2017-01-24 14:16 | Emergency (ER) | payer MEDICARE ==
--- NOTE | 2017-01-24 16:14 | XRay Report ---
FINAL REPORT PROCEDURE: XR HIP 2-3V RT TECHNIQUE: RIGHT hip radiographs, 2 views each, including AP view of the pelvis. HISTORY: PAIN S/P FALL/ RT HIP PAIN COMPARISON: No prior studies are available for comparison. FINDINGS: No acute fracture or dislocation is seen. Hip joint spaces are preserved. Note is made of bilaterally ureteral stents IMPRESSION: No acute osseous abnormality is seen
[2017-01-24 21:13] LABS: Basophils % (Auto) 0.6 % (0.0-1.8); Hematocrit 34.1 % (30.3-42.9); Mean Corpuscular HGB Conc 32 % (30-34); Mean Corpuscular Hemoglobin 27 pg (28-32); Mean Corpuscular Volume 85 fl (79-97); Platelet Count 447 K/mm3 (140-440); Red Blood Count 4.03 M/mm3 (3.65-5.03); Red Cell Distribution Width 14.1 % (13.2-15.2); White Blood Count 12.8 K/mm3 (4.5-11.0)
[2017-01-24 21:25] LABS: INR 1.13 (0.87-1.13)
[2017-01-24 21:37] LABS: Albumin 3.2 g/dL (3.9-5); Albumin/Globulin Ratio 0.6 %; Bilirubin,Total 0.4 mg/dL (0.1-1.2); Calcium 9.8 mg/dL (8.4-10.2); Chloride 99.1 mmol/L (98-107); Magnesium 1.7 mg/dL (1.7-2.3); Potassium 4.5 mmol/L (3.6-5.0); Total Protein 8.8 g/dL (6.3-8.2)
[2017-01-24 23:13] VITALS: BP 148/91
--- NOTE | 2017-01-24 23:18 | Emergency Department Report ---
ED General Adult HPI - General Chief complaint: Extremity Injury, Lower Stated complaint: FALL/RT HIP/LEG PAIN Time Seen by Provider: 01/24/17 23:03 Source: patient, family, RN notes reviewed Mode of arrival: Wheelchair Limitations: Physical Limitation - History of Present Illness Initial comments: This is a 56-year-old female. She is previously unknown to me. The patient has a past medical history of hypertension, diabetes, chronic renal insufficiency, high cholesterol, lupus, stroke. Patient has residual dysarthria from her stroke, and some baseline debility, and typically ambulates with a walker. The patient lives at home with the children and relatives of her daughter. The patient was admitted to the hospital for syncope evaluation in October of this year. The patient had an echocardiogram which demonstrated an ejection fraction 55-60%, in 2015 she had a negative nuclear stress test, and the patient had an essentially unremarkable carotid duplex earlier on this year. The patient is brought to the hospital by her family after the patient tripped on . Contrary to what is documented in the triage note, the family indicates the patient fell on and not Thursday. The family is not certain if the patient tripped or had another inciting event for her fall. The patient to me admits to mild abdominal pain, which she cannot further qualify. She denies severe headache, neck pain, chest pain, and shortness of breath. As per family, the patient is up-to-date with tetanus vaccination. The family also endorses that the patient is unable to urinate, and endorses pain when she urinates. The family indicates that the patient's mental status appears to be at her baseline at this time. -: unknown Location: back, abdomen, left, lower extremity Quality: other (per hpi) Consistency: other (as per history of present illness) Improves with: other (as per history of present illness; no exacerbating or relieving factors) Worsens with: other (as per history of present illness) Associated Symptoms: weakness (chronic weakness). denies: chest pain, cough, nausea/vomiting - Related Data Previous Rx's Medication Instructions Recorded Last Taken Type Carvedilol [Coreg] 6.25 mg PO BID #60 tablet 07/28/15 1 Day Ago Rx Clopidogrel Bisulfate [Plavix] 75 mg PO DAILY #30 tablet 07/28/15 1 Day Ago Rx Gabapentin [Neurontin] 200 mg PO QHS #60 capsule 07/28/15 1 Day Ago Rx Insulin NPH/Regular [NovoLIN 70/30] 15 unit SUB-Q BIDDIAB #3 units 07/28/15 1 Day Ago Rx Simvastatin [Zocor TAB] 10 mg PO QHS #30 tablet 07/28/15 1 Day Ago Rx cloNIDine [Catapres] 0.1 mg PO TID #90 tablet 07/28/15 1 Day Ago Rx Levofloxacin [Levaquin TAB] 500 mg PO Q48H #4 tablet 10/17/16 Unknown Rx Nitrofurantoin [place]/M-Cryst 100 mg PO Q12HR #13 capsule 01/25/17 Unknown Rx [Macrobid CAP] Allergies Allergy/AdvReac Type Severity Reaction Status Date / Time codeine Allergy Vomiting Verified 01/24/17 15:01 ED Review of Systems ROS: Stated complaint: FALL/RT HIP/LEG PAIN Other details as noted in HPI Constitutional: denies: fever Eyes: denies: vision change ENT: denies: epistaxis Respiratory: see HPI Cardiovascular: denies: chest pain Gastrointestinal: abdominal pain Genitourinary: as per HPI, dysuria Musculoskeletal: back pain Skin: denies: lesions Neurological: weakness (chronic) ED Past Medical Hx - Past Medical History Hx Hypertension: Yes Hx CVA: Yes (06/10/15 Right side weakness) Hx Congestive Heart Failure: No Hx Diabetes: Yes Hx Renal Disease: Yes Hx Headaches / Migraines: Yes Hx Kidney Stones: Yes Hx Asthma: No Hx COPD: No Hx HIV: No Additional medical history: Lupus - Surgical History Additional Surgical History: stent in both kidneys and removed, tubal - Social History Smoking Status: Never Smoker Substance Use Type: None - Medications Home Medications: Home Medications Medication Instructions Recorded Confirmed Last Taken Type Carvedilol [Coreg] 6.25 mg PO BID #60 tablet 07/28/15 10/16/16 1 Day Ago Rx Clopidogrel Bisulfate [Plavix] 75 mg PO DAILY #30 tablet 07/28/15 10/16/16 1 Day Ago Rx Gabapentin [Neurontin] 200 mg PO QHS #60 capsule 07/28/15 10/16/16 1 Day Ago Rx Insulin NPH/Regular [NovoLIN 70/30] 15 unit SUB-Q BIDDIAB #3 units 07/28/1504/26 1 Day Ago Rx Simvastatin [Zocor TAB] 10 mg PO QHS #30 tablet 07/28/15 10/16/16 1 Day Ago Rx cloNIDine [Catapres] 0.1 mg PO TID #90 tablet 07/28/15 10/16/16 1 Day Ago Rx Levofloxacin [Levaquin TAB] 500 mg PO Q48H #4 tablet 10/17/16 Unknown Rx Nitrofurantoin [place]/M-Cryst 100 mg PO Q12HR #13 capsule 01/25/17 Unknown Rx [Macrobid CAP] ED Physical Exam - General Limitations: Physical Limitation General appearance: alert, in no apparent distress - Head Head exam: Present: atraumatic, normocephalic - Eye Eye exam: Present: normal appearance, EOMI. Absent: nystagmus - ENT ENT exam: Present: mucous membranes dry - Neck Neck exam: Present: normal inspection, full ROM. Absent: tenderness, meningismus - Respiratory Respiratory exam: Present: normal lung sounds bilaterally. Absent: respiratory distress, wheezes, rales, rhonchi, stridor, chest wall tenderness, accessory muscle use, decreased breath sounds, prolonged expiratory - Cardiovascular Cardiovascular Exam: Present: normal rhythm, bradycardia, normal heart sounds. Absent: systolic murmur, diastolic murmur, rubs, gallop - GI/Abdominal GI/Abdominal exam: Present: soft, normal bowel sounds. Absent: distended, tenderness, guarding, rebound, rigid, pulsatile mass - Extremities Exam Extremities exam: Present: normal inspection (superficial abrasions noted to the left knee.), full ROM, normal capillary refill. Absent: tenderness (there is no long bony tenderness. The pelvis is stable. 2+ pulses are noted in 4 extremities. The compartments are soft.), pedal edema, joint swelling - Back Exam Back exam: Present: normal inspection, full ROM, paraspinal tenderness - Neurological Exam Neurological exam: Present: alert, other (patient has some dysarthria. Patient moves 4 extremities spontaneously. She follows commands.) - Psychiatric Psychiatric exam: Present: normal affect, normal mood - Skin Skin exam: Present: warm, dry, intact, normal color. Absent: rash ED Course Vital Signs 01/24/17 01/24/17 01/24/17 15:01 22:38 22:40 Temperature 98.2 F Pulse Rate 50 L 67 66 Respiratory 18 9 L Rate Blood Pressure 134/89 151/82 O2 Sat by Pulse 100 100 Oximetry 01/24/17 01/24/17 01/24/17 22:50 23:00 23:13 Temperature 97.6 F Pulse Rate 63 69 Respiratory 15 12 Rate Blood Pressure 151/82 148/91 O2 Sat by Pulse 99 98 Oximetry - Reevaluation(s) Reevaluation #1: 01/24/17 23:45 Differential diagnosis: Intracranial injury, urinary tract infection, pneumonia , chronic renal insufficiency, chronic debility, hip contusion, hip fracture, hip dislocation Assessment and plan: 56-year-old female status post fall. She is afebrile with reassuring vital signs. There is a question of possible syncope, however the patient has been with family for over 24 hours, and the indicate there were no episodes of loss consciousness. The patient is low risk by well's criteria, and recently had a syncope workup earlier on this year. Most likely, the patient is debilitated, and may benefit from further outpatient assistance. A case management consult has been placed, and we will obtain a CT scan of the brain and abdomen/pelvis. Renal insufficiency appears to be chronic. X-ray of the chest is negative. X-ray of the pelvis is negative. Reevaluation #2: 01/25/17 01:31 patient observed in the ER for a prolonged period of time. No episodes of syncope. Urinalysis suggests urinary tract infection. CT scan of the brain is negative. CT scan of the abdomen and pelvis negative, indwelling ureteral stents incidentally noted. Patient will be discharged with leg bag, Macrobid prescription, instructed to follow up with outpatient urology for trial of void. ED Medical Decision Making - Lab Data Result diagrams: 01/24/17 20:59 01/24/17 20:59 Vital Signs 01/24/17 01/24/17 01/24/17 15:01 22:38 22:40 Temperature 98.2 F Pulse Rate 50 L 67 66 Respiratory 18 9 L Rate Blood Pressure 134/89 151/82 O2 Sat by Pulse 100 100 Oximetry 01/24/17 01/24/17 01/24/17 22:50 23:00 23:13 Temperature 97.6 F Pulse Rate 63 69 Respiratory 15 12 Rate Blood Pressure 151/82 148/91 O2 Sat by Pulse 99 98 Oximetry Lab Results 01/24/17 01/24/1701/24/17 Range/Units 20:59 20:59 20:59 WBC 12.8 H (4.5-11.0) K/mm3 RBC 4.03 (3.65-5.03) M/mm3 Hgb 11.0 (10.1-14.3) gm/dl Hct 34.1 (30.3-42.9) % MCV 85 (79-97) fl MCH 27 L (28-32) pg MCHC 32 (30-34) % RDW 14.1 (13.2-15.2) % Plt Count 447 H (140-440) K/mm3 Lymph % (Auto) 23.0 (13.4-35.0) % Alfalfa % (Auto) 5.0 (0.0-7.3) % Eos % (Auto) 2.0 (0.0-4.3) % Baso % (Auto) 0.6 (0.0-1.8) % Lymph # 2.9 (1.2-5.4) K/mm3 [place] # 0.6 (0.0-0.8) K/mm3 Eos # 0.3 (0.0-0.4) K/mm3 Baso # 0.1 (0.0-0.1) K/mm3 Seg Neutrophils % 69.4 (40.0-70.0) % Seg Neutrophils # 8.9 H (1.8-7.7) K/mm3 PT 14.4 (12.2-14.9) Sec. INR 1.13 (0.87-1.13) Sodium 133 L (137-145) mmol/L Potassium 4.5 (3.6-5.0) mmol/L Chloride 99.1 (98-107) mmol/L Carbon Dioxide 17 L (22-30) mmol/L Anion Gap 21 mmol/L BUN 33 H (7-17) mg/dL Creatinine 3.3 H (0.7-1.2) mg/dL Estimated GFR 17 ml/min BUN/Creatinine Ratio 10.00 % Glucose 228 H (65-100) mg/dL Calcium 9.8 (8.4-10.2) mg/dL Magnesium 1.70 (1.7-2.3) mg/dL Total Bilirubin 0.40 (0.1-1.2) mg/dL AST 10 (5-40) units/L ALT 10 (7-56) units/L Alkaline Phosphatase 137 H (35-129) units/L Total Creatine Kinase 59 (30-135) units/L Troponin T 0.011 (0.00-0.029) ng/mL Total Protein 8.8 H (6.3-8.2) g/dL Albumin 3.2 L (3.9-5) g/dL Albumin/Globulin Ratio 0.6 % - EKG Data 01/25/17 01:31 Normal sinus, 65 bpm, normal axis, normal intervals, nonspecific T-wave abnormality, not morphologically consistent with STEMI, unremarkable EKG. - Radiology Data Radiology results: report reviewed, image reviewed interpreted by me: X-ray the chest is negative for acute disease. X-ray the pelvis/hip is negative for fracture/acute disease. CT scan of the brain is negative. CT scan of the abdomen and pelvis is negative. Indwelling ureteral stents are noted and appreciated. Critical care attestation.: If time is entered above; I have spent that time in minutes in the direct care of this critically ill patient, excluding procedure time. ED Disposition Clinical Impression: UTI (urinary tract infection), Chronic kidney disease Disposition: DC-01 TO HOME OR SELFCARE Is pt being admited?: No Does the pt Need Aspirin: No Condition: Stable Instructions: Urinary Tract Infection in Women (ED) Additional Instructions: Keep the Hester catheter in place. Take the antibiotics as directed. Ulcers was sent today, results will be available in the next 3-5 days. Have your primary care doctor or urology specialist contact the medical records office to obtain culture results. Follow-up with the urology specialist within the next 7 days for trial of void. Please return to the ER right away with fevers, chills, chest pain, shortness of breath, intractable nausea or vomiting, confusion, inability to tolerate liquid feeds. A case management consult has been placed, you should be contacted at the phone number that you listed to arrange a home visit. Prescriptions: Nitrofurantoin [place]/M-Cryst [Macrobid CAP] 100 mg PO Q12HR #13 capsule Referrals: PRIMARY CARE, [Primary Care Provider] - 3-5 Days CHAYO YE MD [Staff Physician] - 3-5 Days
[2017-01-25 00:19] LABS: Bilirubin,Urine NEG (Negative); Blood,Urine MOD (Negative); Ketones,Urine NEG (Negative); Leukocyte Esterase,Urine MOD (Negative); Nitrite,Urine NEG (Negative); Urobilinogen,Urine < 2.0 mg/dL (<2.0)
[2017-01-25 00:20] LABS: RBC,Urine > 182.0 /HPF (0.0-6.0); Trichomonas,Urine Present /HPF; WBC,Urine > 182.0 /HPF (0.0-6.0)
[2017-01-25] MEDS ORDERED: MACROBID PO ONE (00:44)
--- NOTE | 2017-01-25 01:09 | Cat Scan Report ---
FINAL REPORT PROCEDURE: CT HEAD/BRAIN WO CON TECHNIQUE: Computerized tomography of the head was performed without contrast material. HISTORY: back pain abd pain COMPARISON: No prior studies are available for comparison. FINDINGS: Skull and scalp: Normal. Paranasal sinuses: Normal. Ventricles and subarachnoid spaces: Normal. Cerebrum: There is no evidence of acute intracranial hemorrhage, hematoma, infarction, midline displacement or mass. Mild atrophy and periventricular deep white matter changes are noted. There is old infarction of the right posterior parietal lobe. Small old lacunar infarctions of both basal ganglia are noted.. Cerebellum and brainstem: No evidence of hemorrhage, acute infarction or mass. Vasculature: Normal. Comments: None. IMPRESSION: There is no evidence of an acute intracranial process. Mild atrophy and periventricular deep white matter changes. Old infarction of the right posterior parietal lobe is noted.
--- NOTE | 2017-01-25 01:20 | Cat Scan Report ---
FINAL REPORT PROCEDURE: CT ABDOMEN PELVIS WO CON TECHNIQUE: Computerized axial tomography of the abdomen and pelvis was performed without intravenous contrast. This study is performed without intravascular contrast material and its sensitivity for abdominal and pelvic pathology, including neoplasms, inflammation, abscess, free fluid, thrombosis, arterial dissection and infarction, is reduced compared with a contrast enhanced study. HISTORY: ? syncope ? head tRAUMNA, abdominal pain COMPARISON: No prior studies are available for comparison. FINDINGS: Visualized lower thorax: No significant abnormality. Liver: Normal size and attenuation. Spleen: Normal size and attenuation. Gallbladder and biliary system: Normal. Pancreas: Normal. Adrenals: Normal. Kidneys: There is some thinning of the renal cortex bilaterally. Multiple renal cortical stones are identified, these measure up to 4 millimeters in each kidney. There are numerous areas of hypoattenuation identified in the renal cortex bilaterally. Cysts are suspected. This is not fully evaluated on this study. The largest area on the left measures approximately 2 centimeters. There is mild hydronephrosis bilaterally. Bilateral ureteral stents are identified. The appearance of the stents is appropriate on this study. The proximal pigtails are within slightly dilated renal pelvis bilaterally. The distal pigtails are within the urinary bladder. A Hester catheter is identified within the bladder.. GI tract: No intestinal obstruction. The cecum, appendix and colon are normal. Mild diverticular change in the distal colon. No inflammatory process.. Lymph nodes and mesentery: Normal. Vasculature: Moderate atherosclerosis of the aorta and all branching vessels.. Bladder: Within the urinary bladder there are 2 distal ureteral stents. A Hester catheter is identified. There is a moderate amount of air, this is most likely iatrogenic.. Reproductive organs: The uterus is retroverted. There are some calcifications within the uterus most consistent with fibroid formation.. Peritoneum: Minimal fluid in the lower pelvis is noted.. Musculoskeletal structures: Mild degenerative changes of the osseous structures. No acute osseous abnormality is noted.. Other: None. IMPRESSION: Bilateral ureteral stents are identified in the renal collecting systems. There is global thinning of the renal cortices bilaterally. Bilateral renal calculi and renal cysts are noted. No evidence of intestinal obstruction. Mild diverticulosis of the distal colon. .
--- NOTE | 2017-01-25 09:52 | XRay Report ---
AP CHEST: HISTORY: Weakness AP view of the chest demonstrates a normal mediastinal and cardiac contour with clear lungs and normal bony and soft tissue structures. IMPRESSION: Unremarkable AP chest.
== END 2017-01-25 02:05 | disposition home or self-care (01) ==
LOC: ED 14:16
DX: N39.0 Urinary tract infection, site not specified (principal); E11.22 Type 2 diabetes mellitus with diabetic chronic kidney disease; I12.9 Hypertensive chronic kidney disease with stage 1 through stage 4 chronic kidney disease, or unspecified chronic kidney disease; N18.9 Chronic kidney disease, unspecified; Z79.4 Long term (current) use of insulin; Z88.5 Allergy status to narcotic agent
CPT/HCPCS: 36415; 51702; 70450; 71010; 74176; 80053; 81001; 82550; 83735; 84484; 85025; 85610; 87086; 93005; 93010

== ENCOUNTER 2017-02-04 15:01 | Emergency (ER) | payer MEDICARE ==
--- NOTE | 2017-02-04 21:16 | Emergency Department Report ---
HPI - General Chief Complaint: Urogenital-Female Time Seen by Provider: 02/04/17 21:01 - HPI HPI: Room 5 The patient is a 56-year-old female presenting with a chief complaint of requesting Hester catheter be removed. Patient was seen here 01/24/2017 for several complaints one of which was urinary retention. Hester catheter was placed at that time the patient was given a referral to urology however family states they were unable to follow-up. Family comes to the emergency department today requesting Hester catheter be removed. I explained to the patient family that if the Hester catheter is removed today and she still has urinary retention she will be in severe discomfort very soon. I advised the patient and family states leave the Hester catheter indwelling until she is seen by a urologist. Patient and family verbalized understanding now wish to have Hester catheter remain in place. I informed him that I will check a urinalysis to determine if the patient requires antibiotics. Family states patient completed her previous prescription of antibiotics. When asked how she is feeling the patient replies "I feel fine." Location: Genitourinary system Duration: [see above] Quality: [see above] Severity: 0/10 Modifying factors: [see above] Context: [see above] Mode of transportation: [not driving] ED Past Medical Hx - Past Medical History Previous Medical History?: Yes Hx Hypertension: Yes Hx CVA: Yes (06/10/15 Right side weakness) Hx Diabetes: Yes Hx Renal Disease: Yes Hx Headaches / Migraines: Yes Hx Kidney Stones: Yes Additional medical history: Lupus - Surgical History Past Surgical History?: Yes Additional Surgical History: stent in both kidneys and removed, tubal - Family History Family history: no significant - Social History Smoking Status: Never Smoker Substance Use Type: None, Prescribed - Medications Home Medications: Home Medications Medication Instructions Recorded Confirmed Last Taken Type Carvedilol [Coreg] 6.25 mg PO BID #60 tablet 07/28/15 10/16/16 1 Day Ago Rx Clopidogrel Bisulfate [Plavix] 75 mg PO DAILY #30 tablet 07/28/15 10/16/16 1 Day Ago Rx Gabapentin [Neurontin] 200 mg PO QHS #60 capsule 07/28/15 10/16/16 1 Day Ago Rx Insulin NPH/Regular [NovoLIN 70/30] 15 unit SUB-Q BIDDIAB #3 units 07/28/1504/26 1 Day Ago Rx Simvastatin [Zocor TAB] 10 mg PO QHS #30 tablet 07/28/15 10/16/16 1 Day Ago Rx cloNIDine [Catapres] 0.1 mg PO TID #90 tablet 07/28/15 10/16/16 1 Day Ago Rx Levofloxacin [Levaquin TAB] 500 mg PO Q48H #4 tablet 10/17/16 Unknown Rx Nitrofurantoin [place]/M-Cryst 100 mg PO Q12HR #13 capsule 01/25/17 Unknown Rx [Macrobid CAP] Doxycycline [Vibramycin CAP] 100 mg PO Q12HR #20 capsule 02/04/17 Unknown Rx ED Review of Systems ROS: Stated complaint: CATHETER REMOVAL Other details as noted in HPI Comment: All other systems reviewed and negative Constitutional: denies: chills, fever Eyes: denies: eye pain, eye discharge, vision change ENT: denies: ear pain, throat pain Respiratory: denies: cough, shortness of breath, wheezing Cardiovascular: denies: chest pain, palpitations Endocrine: no symptoms reported Gastrointestinal: denies: abdominal pain, nausea, diarrhea Genitourinary: denies: urgency, dysuria, discharge Musculoskeletal: denies: back pain, joint swelling, arthralgia Skin: denies: rash, lesions Neurological: as per HPI Psychiatric: denies: anxiety, depression Hematological/Lymphatic: denies: easy bleeding, easy bruising Physical Exam - Physical Exam Vital Signs: Vital Signs 02/04/17 15:41 Temperature 98.7 F Pulse Rate 68 Respiratory 20 Rate Blood Pressure 129/88 O2 Sat by Pulse 100 Oximetry Physical Exam: GENERAL: The patient is well-developed female lying on stretcher not appearing to be in acute distress HEENT: Normocephalic. Atraumatic. Extraocular motions are intact. Patient has moist mucous membranes. NECK: Supple. Trachea midline CHEST/LUNGS: Clear to auscultation. There is no respiratory distress noted. HEART/CARDIOVASCULAR: Regular. There is no tachycardia. There is no gallop rub or murmur. ABDOMEN: Abdomen is soft, nontender. Patient has normal bowel sounds. There is no abdominal distention. SKIN: There is no rash. There is no edema. There is no diaphoresis. NEURO: The patient is awake, alert, and oriented. The patient is cooperative. The patient has normal speech MUSCULOSKELETAL: There is no evidence of acute injury. ED Course Vital Signs 02/04/17 15:41 Temperature 98.7 F Pulse Rate 68 Respiratory 20 Rate Blood Pressure 129/88 O2 Sat by Pulse 100 Oximetry ED Medical Decision Making - Lab Data Laboratory Tests 02/04/17 22:21 Urine Color Yellow Urine Turbidity Turbid Urine pH 6.0 Ur Specific [place] 1.014 Urine Protein 100 mg/dl Urine Glucose (UA) Neg Urine Ketones Neg Urine Blood Mod Urine Nitrite Neg Urine Bilirubin Neg Urine Urobilinogen < 2.0 Ur Leukocyte Esterase Mod Urine WBC (Auto) > 182.0 H Urine RBC (Auto) 36.0 Urine Bacteria (Auto) 2+ Urine WBC Clumps 3+ - Differential Diagnosis urinary retention, UTI Critical care attestation.: If time is entered above; I have spent that time in minutes in the direct care of this critically ill patient, excluding procedure time. ED Disposition Clinical Impression: Urinary retention, UTI (urinary tract infection) Disposition: TO HOME OR SELFCARE Is pt being admited?: No Does the pt Need Aspirin: No Condition: Stable Instructions: Hester Catheter Placement and Care (ED), Chronic Urinary Retention in Women (ED), Urinary Leg Bag (GEN) Additional Instructions: Return to the emergency department immediately should you develop worsening symptoms, fever, inability to tolerate food or liquid or any other concerns. Prescriptions: Doxycycline [Vibramycin CAP] 100 mg PO Q12HR #20 capsule Referrals: PRIMARY CARE, [Primary Care Provider] - 3-5 Days CHAYO DARNELL MD [Staff Physician] - [facility] (Dr. Darnell is a urologist. Please follow up with him for further evaluation) Time of Disposition: 23:20
[2017-02-04 23:12] LABS: Bacteria,Urine 2+ /HPF (Negative); Bilirubin,Urine NEG (Negative); Blood,Urine MOD (Negative); Ketones,Urine NEG (Negative); Leukocyte Esterase,Urine MOD (Negative); Nitrite,Urine NEG (Negative); Urobilinogen,Urine < 2.0 mg/dL (<2.0)
[2017-02-04 23:13] LABS: WBC,Urine > 182.0 /HPF (0.0-6.0)
[2017-02-04] MEDS ORDERED: ROCEPHIN IM ONE (23:19)
[2017-02-04] MEDS ORDERED: XYLOCAINE 1% MPF 5 mL INFILTRATI ONE (23:19)
[2017-02-05 00:06] VITALS: BP 189/93
== END 2017-02-05 00:10 | disposition home or self-care (01) ==
LOC: ED 15:01
DX: R33.9 Retention of urine, unspecified (principal); N39.0 Urinary tract infection, site not specified; I10 Essential (primary) hypertension; E11.9 Type 2 diabetes mellitus without complications; G43.909 Migraine, unspecified, not intractable, without status migrainosus
CPT/HCPCS: 81001; 87086; 96372; 99283; J0696

== ENCOUNTER 2017-02-27 08:04 | Emergency (ER) | payer MEDICARE ==
[2017-02-27 12:41] LABS: Basophils % (Auto) 0.6 % (0.0-1.8); Eosinophils % (Auto) 1.5 % (0.0-4.3); Hematocrit 29.7 % (30.3-42.9); Hemoglobin 9.9 gm/dl (10.1-14.3); Mean Corpuscular HGB Conc 33 % (30-34); Mean Corpuscular Hemoglobin 28 pg (28-32); Mean Corpuscular Volume 85 fl (79-97); Platelet Count 246 K/mm3 (140-440); Red Cell Distribution Width 14.4 % (13.2-15.2); White Blood Count 8.4 K/mm3 (4.5-11.0)
--- NOTE | 2017-02-27 12:45 | Emergency Department Report ---
HPI - General Chief Complaint: Urogenital-Female Time Seen by Provider: 02/27/17 12:15 - HPI HPI: This is a 56-year-old Afro-[place] female presents to the emergency department from home with the complaint of needing removal of a indwelling Hester catheter. It was placed here on January 24 secondary to inability to void and the patient was referred to urology but she never followed up. The patient has history of CVA with right-sided weakness from 2014. She has a history of diabetes, migraines, hypertension, lupus, renal insufficiency and has bilateral ureteral stents. Apparently the Hester catheter has become slightly painful and the urine has appeared infected so they called the primary care office, Dr. Fortunato Blackmon, and they were told to come to the emergency department to have it removed. There has been no fever, abdominal distention, bleeding. She was not given anything for symptoms prior to presentation. Family says that the patient is currently at her baseline mental status. ED Past Medical Hx - Past Medical History Previous Medical History?: Yes Hx Hypertension: Yes Hx CVA: Yes (06/10/15 Right side weakness) Hx Congestive Heart Failure: No Hx Diabetes: Yes Hx Renal Disease: Yes Hx Headaches / Migraines: Yes Hx Kidney Stones: Yes Hx Asthma: No Hx COPD: No Hx HIV: No Additional medical history: Lupus - Surgical History Past Surgical History?: Yes Additional Surgical History: stent in both kidneys and removed, tubal - Social History Smoking Status: Never Smoker Substance Use Type: None - Medications Home Medications: Home Medications Medication Instructions Recorded Confirmed Last Taken Type Carvedilol [Coreg] 6.25 mg PO BID #60 tablet 07/28/15 10/16/16 1 Day Ago Rx Clopidogrel Bisulfate [Plavix] 75 mg PO DAILY #30 tablet 07/28/15 10/16/16 1 Day Ago Rx Gabapentin [Neurontin] 200 mg PO QHS #60 capsule 07/28/15 10/16/16 1 Day Ago Rx Insulin NPH/Regular [NovoLIN 70/30] 15 unit SUB-Q BIDDIAB #3 units 07/28/1504/26 1 Day Ago Rx Simvastatin [Zocor TAB] 10 mg PO QHS #30 tablet 07/28/15 10/16/16 1 Day Ago Rx cloNIDine [Catapres] 0.1 mg PO TID #90 tablet 07/28/15 10/16/16 1 Day Ago Rx Levofloxacin [Levaquin TAB] 500 mg PO Q48H #4 tablet 10/17/16 Unknown Rx Doxycycline [Vibramycin CAP] 100 mg PO Q12HR #20 capsule 02/04/17 Unknown Rx Nitrofurantoin [place]/M-Cryst 100 mg PO Q12HR #14 capsule 02/27/17 Unknown Rx [Macrobid CAP] ED Review of Systems ROS: Stated complaint: CATHETER REMOVAL Other details as noted in HPI Comment: All other systems reviewed and negative Constitutional: denies: chills, fever Eyes: denies: eye pain, eye discharge, vision change ENT: denies: ear pain, throat pain Respiratory: denies: cough, shortness of breath, wheezing Cardiovascular: denies: chest pain, palpitations Gastrointestinal: abdominal pain. denies: nausea, vomiting Genitourinary: denies: hematuria, discharge Musculoskeletal: denies: back pain, joint swelling, arthralgia Skin: denies: rash, lesions Neurological: denies: headache, weakness, paresthesias Physical Exam - Physical Exam Vital Signs: Vital Signs 02/27/17 02/27/17 02/27/17 08:24 12:01 12:15 Temperature 97.6 F Pulse Rate 66 Respiratory 16 18 Rate Blood Pressure 105/76 Blood Pressure [Right] O2 Sat by Pulse 100 100 100 Oximetry 02/27/17 12:20 Temperature 98.8 F Pulse Rate 66 Respiratory 18 Rate Blood Pressure Blood Pressure 133/71 [Right] O2 Sat by Pulse 100 Oximetry Physical Exam: GENERAL: The patient is well-developed well-nourished. HEENT: Normocephalic. Atraumatic. Extraocular motions are intact. Patient has moist mucous membranes. Pupils equal reactive to light bilaterally. NECK: Supple. Trachea is mid line. CHEST/LUNGS: Clear to auscultation. There is no respiratory distress noted. HEART/CARDIOVASCULAR: Regular. There is no tachycardia. There is no gallop rub or murmur. ABDOMEN: Abdomen is soft, nontender. Patient has normal bowel sounds. There is no abdominal distention. SKIN: Skin is warm and dry. NEURO: The patient is awake, alert The patient is cooperative. The patient has no focal neurologic deficits. MUSCULOSKELETAL: There is no tenderness or deformity. There is no limitation range of motion. There is no evidence of acute injury. ED Course Vital Signs 02/27/17 02/27/17 02/27/17 08:24 12:01 12:15 Temperature 97.6 F Pulse Rate 66 Respiratory 16 18 Rate Blood Pressure 105/76 Blood Pressure [Right] O2 Sat by Pulse 100 100 100 Oximetry 02/27/17 12:20 Temperature 98.8 F Pulse Rate 66 Respiratory 18 Rate Blood Pressure Blood Pressure 133/71 [Right] O2 Sat by Pulse 100 Oximetry ED Medical Decision Making - Lab Data Result diagrams: 02/27/17 12:15 02/27/17 12:15 - Medical Decision Making 48-year-old female presents to the emergency department with the intent of getting her Hester catheter removed. However, despite the fact that the Hester catheter was placed here on January 24, the family and patient were supposed to follow-up with urology. The urine was tested on urinalysis and does not have a urinary tract infection. Her metabolic panel however shows hyperglycemia. She was given some insulin but the blood sugar went up with his the patient was drinking cranberry and grape juice in the room. She was given some IV fluid and another dose of IV insulin and her blood sugar came down to a more reasonable level. The family says that they should be set up for an early week visit with urology next week. We will keep the Hester catheter in place and she' ll be placed on some antibiotics as the catheter is a foreign body. It did not make sense to remove the catheter here as we still do not know the previous reason as to why she could not void and if we are unable to get it back in the patient with then potentially have to be transferred to another facility where urology is present. Family is in agreement with this plan. - Differential Diagnosis DKA, HHNK, UTI Critical Care Time: No Critical care attestation.: If time is entered above; I have spent that time in minutes in the direct care of this critically ill patient, excluding procedure time. ED Disposition Clinical Impression: Hyperglycemia, Hester catheter in place Chronic kidney disease Qualifiers: Chronic kidney disease stage: unspecified stage Qualified Code(s): N18.9 - Chronic kidney disease, unspecified Disposition: DC-01 TO HOME OR SELFCARE Is pt being admited?: No Condition: Stable Instructions: Chronic Kidney Disease (ED), Hester Catheter Placement and Care ( ED), Diabetic Hyperglycemia (ED), Urinary Leg Bag (GEN) Additional Instructions: Please follow-up with your primary care physician in the next few days. You will need to see a urologist early next week so that the Hester catheter can be removed and/or the urination can be evaluated. You can see whatever physician you would like but I will give you have referral for a local urologist, Dr. Darnell. I have placed you on antibiotics since the Hester catheter is in place and is considered a foreign body. Return to the emergency department with any worsening of your symptoms or any acute distress. Prescriptions: Nitrofurantoin [place]/M-Cryst [Macrobid CAP] 100 mg PO Q12HR #14 capsule Referrals: CHAYO DARNELL MD [Staff Physician] - 3-5 Days FORTUNATO BLACKMON MD [Staff Physician] - 3-5 Days Time of Disposition: 16:12
[2017-02-27 12:50] LABS: Bilirubin,Urine NEG (Negative); Blood,Urine NEG (Negative); Ketones,Urine NEG (Negative); Leukocyte Esterase,Urine NEG (Negative); Nitrite,Urine NEG (Negative); Protein,Urine <15 mg/dL mg/dL (Negative); Urobilinogen,Urine < 2.0 mg/dL (<2.0)
[2017-02-27 12:55] VITALS: BP 117/67
[2017-02-27 12:58] LABS: BUN/Creatinine Ratio 9.56; Calcium 9.4 mg/dL (8.4-10.2); Chloride 99.1 mmol/L (98-107); Potassium 4.2 mmol/L (3.6-5.0)
[2017-02-27] MEDS ORDERED: NACL 0.9% 1000 ML 1,000 ML IV ONE (14:29)
== END 2017-02-27 16:41 | disposition home or self-care (01) ==
LOC: ED 08:04
DX: E11.65 Type 2 diabetes mellitus with hyperglycemia (principal); I12.9 Hypertensive chronic kidney disease with stage 1 through stage 4 chronic kidney disease, or unspecified chronic kidney disease; N18.9 Chronic kidney disease, unspecified; I63.9 Cerebral infarction, unspecified; G43.909 Migraine, unspecified, not intractable, without status migrainosus; M32.9 Systemic lupus erythematosus, unspecified; Z79.4 Long term (current) use of insulin
CPT/HCPCS: 36415; 80048; 81001; 82962; 85025; 96361; 96374; 96376; 99284; J7030; J1815